=== PATIENT | female | born 1965 | race Caucasian/White ===

== ENCOUNTER → 2023-04-03 16:41 | Outpatient (REF) | payer BC, SELFPAY | LOC: RAD 16:41 | PROVIDERS: ATTENDING PHYSICIAN Family Medicine | DX: M25.512 Pain in left shoulder (principal); G89.29 Other chronic pain; M54.50 Low back pain, unspecified; Z87.39 Personal history of other diseases of the musculoskeletal system and connective tissue | CPT/HCPCS: 72052; 72072; 72110; 73030 ==

== ENCOUNTER → 2023-06-24 12:42 | Outpatient (REF) | payer BC, SELFPAY | LOC: WDC 12:42 | PROVIDERS: ATTENDING PHYSICIAN Family Medicine; OTHER PHYSICIAN Preventive Medicine Preventive Medicine/Occupational Environmental Medicine; REFERRING PHYSICIAN Specialist | DX: Z12.31 Encounter for screening mammogram for malignant neoplasm of breast (principal) | CPT/HCPCS: 77063; 77067; 77080 ==

== ENCOUNTER → 2023-06-25 16:44 | Outpatient (REF) | payer BC, SELFPAY | LOC: PAVMRI 16:44 | PROVIDERS: ATTENDING PHYSICIAN Radiology Diagnostic Radiology; FAMILY PHYSICIAN Family Medicine; OTHER PHYSICIAN Ophthalmology | DX: M25.512 Pain in left shoulder (principal); M15.9 Polyosteoarthritis, unspecified; M54.50 Low back pain, unspecified; S05.50XA Penetrating wound with foreign body of unspecified eyeball, initial encounter | CPT/HCPCS: 70030 ==

== ENCOUNTER → 2023-07-23 16:50 | Outpatient (REF) | payer BC, SELFPAY | LOC: PAVMRI 16:50 | PROVIDERS: ATTENDING PHYSICIAN Family Medicine | DX: M25.512 Pain in left shoulder (principal); M15.9 Polyosteoarthritis, unspecified; M54.50 Low back pain, unspecified | CPT/HCPCS: 72141; 72148; 73221 ==

== ENCOUNTER → 2024-05-25 13:12 | Outpatient (REF) | payer BC, SELFPAY | LOC: RAD 13:12 | PROVIDERS: ATTENDING PHYSICIAN Obstetrics & Gynecology; FAMILY PHYSICIAN Family Medicine | DX: N95.0 Postmenopausal bleeding (principal) | CPT/HCPCS: 76830; 76856 ==